=== PATIENT | male | born 1985 | race Caucasian/White ===

== ENCOUNTER 2019-02-19 14:15 | Emergency (ER) | payer MEDICAID ==
[~2019-02-19] VITALS: Ht 162.6 cm; Wt 77.3 kg
[2019-02-19 14:28] VITALS: BP 139/88
[2019-02-19] MEDS ORDERED: SULF1TAB49 PO (15:29)
== END 2019-02-19 15:45 | disposition home or self-care (01) ==
LOC: ER 14:16
DX: L02.415 Cutaneous abscess of right lower limb (principal); Z59.0 Homelessness; Z79.2 Long term (current) use of antibiotics
CPT/HCPCS: 99283

== ENCOUNTER 2020-12-04 15:28 | Emergency (ER) | payer MEDICAID ==
[~2020-12-04] VITALS: Ht 180.3 cm; Wt 81.0 kg
[2020-12-04 15:31] VITALS: BP 141/96
[2020-12-04] MEDS ORDERED: LORazepam 2 mg/ml vial IV ONE (15:35)
[2020-12-04] MEDS ORDERED: normal saline 1000ML IV soln IV ONE (15:35)
--- NOTE | 2020-12-04 15:41 | NUR ---
PT BAD HISTORIAN. UNABLE TO COLLECT ALL HEALTH INFO AT THIS TIME DUE TO CONDITION
--- NOTE | 2020-12-04 15:41 | NUR ---
PT NOW COOPERATIVE WITH STAFF
--- NOTE | 2020-12-04 15:45 | NUR ---
BLOOD SUGAR 77, WILL NOTIFY ERP. PT WILL NOT KEEP MONITOR EQUIPMENT ON. RN EDUCATED ON NEED FOR MONITOR EQUIPMENT. PT REFUSING. UNABLE TO COLLECT MED REQ HX.
[2020-12-04 15:57] LABS: BASOPHILS % (AUTO) 0.8 % (0-1); EOSINOPHILS # (AUTO) 0.2 X10'3 (0-0.9); EOSINOPHILS % (AUTO) 3.2 % (0-6); HEMOGLOBIN 12.9 g/dl (14.0-17.9); LYMPHOCYTES # (AUTO) 2.6 X10'3 (1.1-4.8); LYMPHOCYTES % (AUTO) 41.6 % (21-51); MEAN CORPUSCULAR HEMOGLOBIN 27.8 PG (27.0-31.0); MEAN CORPUSCULAR HGB CONC 33.2 g/dL (33.0-36.5); MEAN CORPUSCULAR VOLUME 83.8 FL (78-98); MEAN PLATELET VOLUME 8.2 FL (7.4-10.4); MONOCYTES # (AUTO) 0.6 X10'3 (0-0.9); MONOCYTES % (AUTO) 9.3 % (2-12); NEUTROPHILS # (AUTO) 2.8 X10'3 (1.8-7.7); NEUTROPHILS % (AUTO) 45.1 % (42-75); PLATELET COUNT 199 X10'3 (140-440); RED BLOOD COUNT 4.65 X10'6 (4.70-6.10); RED CELL DISTRIBUTION WIDTH 15.6 % (11.5-14.5); WHITE BLOOD COUNT 6.3 X10'3 (4.5-11.0)
[2020-12-04 16:15] LABS: ALANINE AMINOTRANSFERASE 95 U/L (12-78); ALBUMIN 3.4 G/DL (3.4-5.0); ALBUMIN/GLOBULIN RATIO 0.9 (1.1-1.5); ALKALINE PHOSPHATASE 105 IU/L (46-116); ANION GAP 10 (8-16); ASPARTATE AMINO TRANSFERASE 73 U/L (10-37); BILIRUBIN,TOTAL 0.5 MG/DL (0.1-1.0); BLOOD UREA NITROGEN 14 MG/DL (7-18); BUN/CREATININE RATIO 19.2 (5.4-32.0); CALCIUM 8.6 MG/DL (8.5-10.1); CHLORIDE 108 MMOL/L (99-107); CREATININE 0.73 MG/DL (0.60-1.10); GLUCOSE 83 MG/DL (70-104); POTASSIUM 3.8 MMOL/L (3.5-5.1); SODIUM 143 MMOL/L (135-145); TOTAL CARBON DIOXIDE 24.9 MMOL/L (24-32); eGFR > 90 ML/MIN
--- NOTE | 2020-12-04 16:35 | NUR ---
PT REMOVED OWN IV. BLEEDING CONTROLLED. PT STILL CONTINUES TO REMOVE MONITOR EQUIPMENT. EVEN CHEST RISE AND FALL NOTED. PT MOVING AROUND IN BED AND UNABLE TO STAY STILL.
--- NOTE | 2020-12-04 16:40 | NUR ---
per erp, okay to not reestablished IV. food and fluids given to pt. still unable to collect VS
[2020-12-04] MEDS ORDERED: NALO4SPR BOTHNARES (17:00)
--- NOTE | 2020-12-04 17:50 | NUR ---
PER [employer], PT WAS ESCORTED OUT WITH SECURITY. D/C INSTRUCTIONS WERE GIVEN TO PT. UNABLE TO COLLECT LAST SET OF VS
== END 2020-12-04 17:52 | disposition home or self-care (01) ==
LOC: ER 15:29
DX: T50.7X1A Poisoning by analeptics and opioid receptor antagonists, accidental (unintentional), initial encounter (principal); R45.1 Restlessness and agitation; Z79.899 Other long term (current) drug therapy; Z59.0 Homelessness; Y92.89 Other specified places as the place of occurrence of the external cause
CPT/HCPCS: 36415; 80053; 82948; 85025; 93005; 96361; 96374; 99284; J2060; J7030

== ENCOUNTER 2020-12-28 23:23 | Emergency (ER) | payer MEDICAID ==
[~2020-12-28] VITALS: Ht 193 cm; Wt 72.7 kg
[~2020-12-28 23:23] MED LIST: NALO4SPR BOTHNARES
[2020-12-28 23:36] VITALS: BP 116/65
== END 2020-12-29 05:14 | disposition left against medical advice (07) ==
LOC: ER 23:24
DX: M79.601 Pain in right arm (principal); Z53.21 Procedure and treatment not carried out due to patient leaving prior to being seen by health care provider